=== PATIENT | male | born 1995 | race Native Hawaiian/Other Pacific Islander ===

== ENCOUNTER 2021-04-16 11:13 | Inpatient (IN) | payer BC, OTHER ==
[~2021-04-16] VITALS: Ht 195.6 cm; Wt 93.6 kg
--- NOTE | 2021-04-16 11:30 | NUR ---
LATE ENTRY PT ARRIVED TO FLOOR VIA WC. ASSESSMENT COMPLETED. PT STATES HE HAS NOT BEEN FEELING GOOD FOR THE PAST 11 DAYS. HE HAS SEEN 2 OTHER DOCTORS RELATED TO THIS ILLNESS WITH NO RESULTS. PT FAMILY REPORTS THAT HIS SATS DROP TO HIGH 70S LOW 80S WITH MINIMAL EXERTION. PT PALE AND RESP LABORED. NOTIFIED. NEW ORDERS GIVEN TO PT PT ON HIGH FLOW. ORDER CARRIED OUT. PT SATS INCREASE TO 94% ON HIGH FLOW WITH SETTINGS OF 45L AT 40%.
[2021-04-16 11:57] LABS: PLATELET COUNT 256 K/uL (142-355)
[2021-04-16 12:48] LABS: POTASSIUM 4.5 mmol/L (3.6-5.2)
[2021-04-16 18:12] VITALS: BP 119/73; TEMP 99.7
--- NOTE | 2021-04-16 18:20 | NUR ---
PT BEGAN TO HAVE BLEEDING FROM THE NOSE AND COUGHING UP BLOOD. PT SPIT SCANT AMOUNT OF SPUTUM WITH BRIGHT RED BLOOD MIXED IN INTO BASIN. SUPERVISOR BINDERY GAVE PT LUBRICANT JELLY TO PUT IN NOSE TO PREVENT FURTHER DRYING OF NASAL MUCOSA. BLOODY SPUTUM WAS DISCUSSED WITH .
[2021-04-16 20:00] VITALS: BP 116/71; TEMP 98.7
--- NOTE | 2021-04-16 22:29 | NUR ---
PM MEDS GIVEN AT THIS TIME. PT. TOLERATED WELL. PT. CURRENTLY ON 45L @ 40% ON HIGH FLOW OXYGEN DEVICE SATTING BETWEEN 92-95% AT THIS TIME. PT. IN A HIGH FOWLERS POSITION WITH SIDE RAILS UP TIMES TWO WITH BED IN LOWEST POSITION WITH CALL LIGHT WITHIN REACH. CINDER DUMP CRANE OPERATOR EDUCATED ON CONSISTENT USE OF INCENTIVE SPIROMETER AND ACAPELLA DEVICES. PT. UTILIZIED BOTH DEVICES AND GOT UP TO 2000 ON THE INCENTIVE SPIROMETER. NO S/S OF ACUTE DISTRESS NOTED AT THIS TIME ON CURRENT OXYGEN SETTINGS. WILL CONTINUE TO MONITOR FOR ANY ACUTE CHANGES.
[2021-04-17] VITALS (7 sets, daily range): BP systolic 103–121; BP diastolic 59–71; TEMP 97–99.1; Ht 195.6 cm; Wt 93.6 kg
--- NOTE | 2021-04-17 05:15 | NUR ---
RAD AT BEDSIDE AT THIS TIME TO RETRIEVE PT. FOR CXR. PT. PUT ON 6LPM FOR WHEELCHAIR TRANSFER TO RADIOLOGY 0520- PT BACK TO ROOM AT THIS TIME. NO S/S OF ACUTE DISTRESS AT THIS TIME.
[2021-04-17 06:07] LABS: PLATELET COUNT 269 K/uL (142-355)
[2021-04-17 07:01] LABS: POTASSIUM 4.1 mmol/L (3.6-5.2)
--- NOTE | 2021-04-17 10:45 | NUR ---
INCREASE HFNC 50LPM/100% SATS STAYED AT 91-92% AND DONE MANUAL CPT ON PATIENT. PATIENT IS NOW PRONING FOR 1 HOUR.
--- NOTE | 2021-04-17 11:00 | NUR ---
PT WAS PRONED BY RT AND BEGAN TO INCREASE IN O2 SAT TO 99%. PRONING WAS TOLERATED VERY WELL. PT HAS RECIEVED CHEST PT AND SMART VEST.
--- NOTE | 2021-04-17 13:10 | NUR ---
DROPPED 02 TO 90% PATIENT SATING 91-93%. PATIENT EATING AFTER MEAL. WE WELL PRONE AGAIN FOR AN HOUR AND CPT WAS DONE ALSO.
--- NOTE | 2021-04-17 14:41 | NUR ---
PATIENT IS PRONING FOR AN HOUR AT THIS TIME. 02 AT 80%. SATING 98 % AND ANA CPT DONE ALSO.
--- NOTE | 2021-04-17 17:45 | NUR ---
POWER TO THE HOSPITAL WENT OUT. PT HAD TO BE MOVED TO NASAL CANNULA BRIEFLY WHILE HIGH FLOW MACHINE WAS BEING TRANSPORTED TO THE NEW ROOM. PT'S O2 SAT DROPPED TO THE 80'S RANGE WHILE BEING TRANSPORTED. PT WAS SUCCESSFULLY PLACED IN HIS NEW ROOM AND HIGH FLOW RE-APPLIED. PT STATED THAT THE LOSS OF HIGH FLOW O2 WAS "CONCERNING" FOR HIM, PT LOOKED SLIGHTLY FEARFUL. PT IS NOW LAYING IN BED WATCHING TV AND NO SIGNS OF DISTRESS ARE NOTED.
[2021-04-18] VITALS: BP 120/72; TEMP 97.8
[2021-04-18 04:00] VITALS: BP 114/73; TEMP 97.8
[2021-04-18 08:00] VITALS: BP 125/76; TEMP 98.2
--- NOTE | 2021-04-18 10:22 | NUR ---
changed water bag on high flow and adjusted flow to 40 o2 95% pt tolerating well and spo2 maintained at 95%. pt stated the flow was better tolerated.
[2021-04-18 11:59] LABS: PLATELET COUNT 351 K/uL (142-355)
[2021-04-18 12:00] VITALS: BP 123/79; TEMP 97.7
[2021-04-18 12:33] LABS: POTASSIUM 4.1 mmol/L (3.6-5.2)
--- NOTE | 2021-04-18 13:19 | NUR ---
1240 PT'S FLOW WAS AT 40 AND O2 WAS REDUCED TO 60%. SPO2 MAINTAINED AT 93% HR 65. PT LAYING IN BED WITH NO WORK OF BREATHING AT THIS TIME.
[2021-04-18 16:00] VITALS: BP 121/71; TEMP 98.4
--- NOTE | 2021-04-18 16:30 | NUR ---
PT WORKING WITH IS PULLING 2500CC GOOD EFFORT COUGH WAS STIMULATED WITH MOD AMT OF CLEAR SECRETIONS I ATTEMPTED TO ASSIST WITH THE COUGH WITH SOME CPT ON HIS BACK. TX TOLERATED WELL
--- NOTE | 2021-04-18 19:45 | NUR ---
IN ROOM TO CHECK ON PT. PT LAYING IN HIGH FOWLERS AT THIS TIME. PT STATES, "I AM FEELING A LOT BETTER." PT ALSO STATES THAT HE CAN GET 2500 ON THE INCENTIVE SPIROMETER. IV SITES FLUSHED. NO REDNESS, EDEMA, OR LEAKING. PT DENIES ANY COMPLAINTS WITH IV SITE. IV SITES LEFT SALINE LOCKED PER DR. VALDOVINOS'S ORDERS. NO SIGNS OR SYMPTOMS OF DISTRESS AT THIS TIME. WILL CONTINUE TO MONITOR. BED LOCKED AND LOW WITH CALL [place]ITFIELD IN REACH.
[2021-04-18 20:00] VITALS: BP 122/74; TEMP 98.7
[2021-04-19 00:21] VITALS: BP 129/71; TEMP 98.3
--- NOTE | 2021-04-19 01:00 | NUR ---
PT LAYING IN LOW JACKSON'S AT THIS TIME WITH EYES CLOSED, RESTING QUIETLY. PT STILL HOOKED UP TO TELEMETRY WITH CONTINUOUS O2 MONITORING. VITAL SIGNS ARE STABLE AT THIS TIME. NAD NOTED. WILL CONTINUE TO MONITOR.
[2021-04-19 04:00] VITALS: BP 113/68; TEMP 97.6
--- NOTE | 2021-04-19 06:49 | NUR ---
PT RESTING IN LF WITH HIS EYES CLOSED AT THIS TIME. NAD NOTED. DR. VALDOVINOS NOTIFIED THAT PT STARTED HAVING ARRHYTHMIAS ON TELE A FEW HOURS AGO. EKG DONE AT THAT TIME (0400) AND READ NORMAL SINUS RHYTHM WITH BRADYCARDIA. PT'S VITAL SIGNS WERE STABLE AND PT DENIED FEELING "LIKE ANYTHING WAS WRONG". DR. VALDOVINOS MADE AWARE OF ALL OF THIS AND SAP PROJECT MANAGER RECEIVED NEW ORDERS FOR PATIENT. ORDERS PUT IN THE CHART.
[2021-04-19 07:03] LABS: PLATELET COUNT 358 K/uL (142-355)
[2021-04-19 07:25] LABS: POTASSIUM 4.6 mmol/L (3.6-5.2); SODIUM 143 mmol/L (136-145)
--- NOTE | 2021-04-19 08:08 | NUR ---
04/19/21 0730 WENT TO CHECK ON PATEINT HEART RATE ELEVATED TO 1128 PT OUT OF BED AMBULATING IN ROOM.PT HAD NONREBREATHER ON BUT AT ONLY 3LPM O2 SAT 89-92..SPOKE WITH RESPIRATORY SHE SAID TO INCREASE NONREBREATHER TO [address] BACK ON HIGH FLOW.ALSO LET HER KNOW HAS ORDERED A ABG FOR THIS AM.HEART RATE WITH PT AT REST BACK IN BED AT 53 OXYGEN SATURATION 94-95 PERCENT.CC
[2021-04-19 08:19] VITALS: BP 113/64; TEMP 98.1
--- NOTE | 2021-04-19 09:39 | NUR ---
04/19/[address] VALDOVINOS HERE [facility] ALSO NOTIFIED OF POS BS POS STAFF HEMO. 04/19/[address] VALDOVINOS OF ABG RESULTS. 04/19/21 0912 RESP PRESENT IN ROOM SMARTVEST IN PROGRESS.HIGH FLOW ADJUSTED DOWN TO 40LPM/50 PERCENT OXYGEN.PT MAY USE 02 AT 4LPM WHILE AMBULATING.RESP PRESENT IN ROOM TO PERFORM ECHO.CALL LIGHT WITHIN REACH.CC
--- NOTE | 2021-04-19 09:56 | NUR ---
04/19/21 0950 OXYGEN SATURATION DOWN TO 83 PERCENT PT NOT WEARING OXYGEN ASSISTED TO PUT HF BACK ON OXYGEN SATURATION UP TO 91 PERCENT.CC
--- NOTE | 2021-04-19 10:12 | NUR ---
04/19/21 OXYGEN SATURATION 93 PERCENT ON HIGH FLOW.40LPM/50 PERCENT.
[2021-04-19 12:00] VITALS: BP 116/69; TEMP 98.2
[2021-04-19 16:00] VITALS: BP 129/76; TEMP 98.2
[2021-04-19 20:00] VITALS: BP 128/72; TEMP 97.4
--- NOTE | 2021-04-19 20:00 | NUR ---
Patient was assisted with shampooing his hair, and washing his upper body by basin, and clothes. Respiratory also came into the room, to do cpt, and smart vest on patient. Patient was also instructed to use the incentive spirometer every hour, while awake. No acute distress noted. Call light is within reach. Patient is on tele, and continous pulse ox and being monitored at nurses station. Call light is within reach.
[2021-04-20] VITALS: BP 116/68; TEMP 97.9
--- NOTE | 2021-04-20 01:03 | NUR ---
Patient is on telementry and is being monitored at nurses station. Heartrate is ranging between 35-32, while pt is resting with eyes closed, but goes up to 50-60, when staff goes in and wakes him up and talks to him. Pt denies feeling dizzy, weak, or any discomfort. He is very appreciative to staff for being concerned about him. Dr Hensley called and informed about patient being extreme bradycardia, and she instructed this nurse to kept monitoring patient as long as his was asymptomic, but also ordered atropine, iv to have on hand at bedside, in case patient's heartrate went lower, or patient became symptomic and passed out. Patient is being monitored closely by staff, and call light is within reach, and patient is instructed to use call light if he notices any discomfort.
[2021-04-20 04:00] VITALS: BP 121/69; TEMP 97.9
[2021-04-20 05:11] LABS: POTASSIUM 4.5 mmol/L (3.6-5.2)
[2021-04-20 05:38] LABS: PLATELET COUNT 327 K/uL (142-355)
[2021-04-20 08:00] VITALS: BP 124/69; TEMP 97.6
--- NOTE | 2021-04-20 08:30 | NUR ---
PATIENT IN HIGH FOWLERS POSITION. EDUCATED PATIENT ON IMPORTANCE OF USING IS EVERY HOUR AND PATIENT V/O UNDERSTANDING. PATIENT DEMONSTRATED USE AND ABLE TO PULL 3000 AT THIS TIME.
--- NOTE | 2021-04-20 10:50 | NUR ---
PATIENT AMBULATED AROUND ROOM WITH USE OF NC 4LPM WITHOUT DIFFICULTY. PATIENT REPOSITIONED TO RECLINER AND V/O HIS APPRECIATION FOR SAME. HIGH FLOW PLACED BACK ON PATIENT, CALL LIGHT WITHIN REACH AND PATIENT INSTRUCTED TO CALL FOR ANY ASSISTANCE OR NEEDS, PT V/O UNDERSTANDING. NO S/SX OF RESPIRATORY DISTRESS NOTED AT THIS TIME. PATIENT EXPRESSED HIS APPRECIATION FOR THE CARE HE HAS RECEIVED WHILE AT [facility] [place].
[2021-04-20 12:00] VITALS: BP 120/73; TEMP 98
[2021-04-20 16:00] VITALS: BP 114/63; TEMP 98
--- NOTE | 2021-04-20 17:30 | NUR ---
PATIENT REMAINS IN THE RECLINER AND RECEIVING OXYGEN VIA HIGH FLOW WITH NO CHANGES TO HIGH FLOW SETTINGS.
[2021-04-20 20:00] VITALS: BP 107/67; TEMP 92.1
--- NOTE | 2021-04-20 20:00 | NUR ---
PT SITTING IN RECLINER. WATCHING TV. USING HIGH FLOW OXYGEN ORDERED. MONITORING O2 SATS AND VITAL SIGNS.
[2021-04-21] VITALS: BP 130/83; TEMP 97.6
[2021-04-21 04:00] VITALS: BP 131/66; TEMP 98
--- NOTE | 2021-04-21 04:05 | NUR ---
PT HAS RESTED THIS SHIFT. HR CONTINUES TO BE IN THE 30'S. 38-47 BPM. WHEN PATIENT IS STIMULATED HR IS IN THE 70'S AND 80'S. PT HAS BEEN USING HIGH FLOW NASAL CANNULA AT 40 LITERS AT 50 PERCENT. O2 SATS 97 PERCENT. TELE WITH SR. INCENTIVE SPIROMETER AT BEDSIDE. PT PULLS AT 3000. SMART VEST THERAPY WAS PERFORMED AND PT TOLERATED WELL. NO INCREASE IN HR OR VY. BEDSIDE TABLE IN EASY REACH. INSTRUCTED PT TO CALL FOR ASSISTANCE.
[2021-04-21 08:00] VITALS: BP 113/69; TEMP 97.9
[2021-04-21 08:59] LABS: PLATELET COUNT 465 K/uL (142-355)
[2021-04-21 09:13] LABS: POTASSIUM 4.2 mmol/L (3.6-5.2)
--- NOTE | 2021-04-21 09:30 | NUR ---
PATIENT SITTING UP IN CHAIR WITHOUT ANY COMPLAINTS OR DISTRESS NOTES. PATIENT STATES HE IS FEELING A LOT BETTER AT THIS TIME. DR. VALDOVINOS HERE TO SEE PATIENT AT THIS TIME. ORDERS GIVEN TO TAKE PATIENT OFF HIGH FLOW AND MONITOR O2 SATS.. PATIENT DENIES ANY SHORTNESS OF BREATH AND SAT UP IN RECLINER AT BEDSIDE WATCHING TV FOR APPROXIMATELY 45 MINUTES AND OXYGEN SATURATION STAYED FROM 93%-98% WITHOUT DROPPING. PATIENT DENIES ANY SOB AT THIS TIME AND NO DISTRESS OR LABORED BREATHING NOTED. PATIENT ASSISTED TO SHOWER AND WAS ABLE TO TAKE SHOWER AND CLOTHE HIMSELF AND AMBULATE BACK TO RECLINER WITHOUT ANY OXYGEN SATURATION READINGS LESS THAN 93%. DR. VALDOVINOS AWARE AND STATES DC TELEMETRY AND CONTINOUS PULSE OX AT THIS TIME AND MONITOR WITH SPOT CHECK O2 SAT. NO DISTRESS NOTED AND PATIENT RESTING QUIETLY AND COMFORTABLE. CALL LIGHT WITHIN REACH. WILL CONTINUE TO MONITOR.
[2021-04-21 12:00] VITALS: BP 122/73; TEMP 98
[2021-04-21 16:00] VITALS: BP 118/72; TEMP 98.3
--- NOTE | 2021-04-21 18:46 | NUR ---
PATIENT REMAINS ON ROOM AIR AT THIS TIME AND HAS BEEN OFF ANY OXYGEN AT ALL SINCE AROUND 1000 AM NO DISTRES NOTED AT ANY TIME AND PATIENT STATES "I FEEL LIKE A NEW MAN!" PATIENT ADVISED TO STILL BE CAUTIOUS WHEN AMBULATING IN THE ROOM AND TO TAKE BREAKS AND CALL STAFF FOR ANY DISTRESS OR SHORTNESS OF BREATH. CALL LIGHT WITHIN REACH WILL CONTINUE TO MONITOR.
[2021-04-21 20:00] VITALS: BP 123/66; TEMP 97.7
--- NOTE | 2021-04-21 21:00 | NUR ---
REMDESAVIR 100MG WAS HUNG FOR INFUSION. PM MEDICATIONS WERE GIVEN. VITAL SIGNS STABLE.
--- NOTE | 2021-04-21 22:00 | NUR ---
O2 SATS ARE 95 TO 97 PERCENT ON ROOM AIR. NAD.
[2021-04-22] VITALS: BP 109/53; TEMP 97.9
[2021-04-22 04:00] VITALS: BP 123/56; TEMP 97.8
[2021-04-22 08:00] VITALS: BP 111/59; TEMP 97.9
--- NOTE | 2021-04-22 09:20 | NUR ---
IN TO GIVE MORNING MEDS. NAD NOTED. PT HAS NO COMPLAINTS OR REQUESTS AT THIS TIME. PHYSICAL THERAPY STATED THAT PT'S O2 STAYED AT 92% ON ROOM AIR AFTER AMBULATING. BED LOW AND LOCKED. SIDE RAILS UP X2. CALL LIGHT WITHIN REACH.
[2021-04-22 12:00] VITALS: BP 99/53; TEMP 97.9
--- NOTE | 2021-04-22 16:30 | NUR ---
BOTH IV DC TIPS INTACT. PT TOLERATED WELL. EDUCATED PT ON DISCHARGE INSTRUCTIONS. PT VERBALIZED UNDERSTANDING. PT WALKED OUT OF BUILDING TO POV ACCOMPANIED BY STAFF.
== END 2021-04-22 16:20 | disposition home or self-care (01) | DRG 177 ==
LOC: MED/SURG 11:13
PROVIDERS: ADMIT Family Medicine; ATTEND Family Medicine
DX: U07.1 COVID-19 (principal); J12.82 Pneumonia due to coronavirus disease 2019; J96.01 Acute respiratory failure with hypoxia; R00.0 Tachycardia, unspecified
CPT/HCPCS: 36415; 36600; 80053; 82550; 82728; 82805; 83735; 84100; 84484; 85007; 85027; 85379; 86140; 86900; 86901; 87040; 87077; 87185; 87186; 87205; 87635; 93005; 94667; 94668; 94760; J0456; J0696; J1100; J1650; J1885; J2405; P9017; U0003

== ENCOUNTER 2021-05-10 14:03 | Observation (INO) | payer BC ==
[2021-05-10] VITALS (13 sets, daily range): BP systolic 122–147; BP diastolic 70–88; TEMP 98.7
[~2021-05-10] VITALS: Ht 195.6 cm; Wt 93.2 kg
[2021-05-10 15:56] LABS: PLATELET COUNT 292 K/uL (142-355)
[2021-05-10 16:03] LABS: POTASSIUM 4.1 mmol/L (3.6-5.2)
[2021-05-11 04:00] VITALS: BP 120/69; TEMP 97.5
[2021-05-11] MEDS ORDERED: VITAMIN C500 M7 PO (04:11)
[2021-05-11] MEDS ORDERED: VITAMIN D35000 UNI6 PO (04:19)
[2021-05-11] MEDS ORDERED: ORAZINC220 MG (04:20)
[2021-05-11] MEDS ORDERED: ASPI325T40 PO (04:21)
[2021-05-11] MEDS ORDERED: PROVENTIL (04:26)
[2021-05-11] MEDS ORDERED: TRELEGY ELLIPTA1 AER (04:27)
[2021-05-11 04:37] LABS: PLATELET COUNT 247 K/uL (142-355)
[2021-05-11 04:48] LABS: POTASSIUM 3.7 mmol/L (3.6-5.2)
[2021-05-11 05:30] VITALS: BP 140/83; TEMP 97.8; Ht 195.6 cm; Wt 93.2 kg
--- NOTE | 2021-05-11 06:44 | NUR ---
pt's meds are in the med room. pt's pulse ox out of medicine bag, placed in his bag.
[2021-05-11 08:00] VITALS: BP 111/57; TEMP 97.7
--- NOTE | 2021-05-11 08:00 | NUR ---
DR. VALDOVINOS ORDERS HYRDOCODONE 10/325 PO Q6 PRN FOR PAIN INSTEAD OF USING IV FLUIDS TO SEE IF IT CAN CONTROL HIS PAIN, SHE STATES TO USE IV MED IF HYDROCODONE DOES NOT HELP
[2021-05-11 12:00] VITALS: BP 116/74; TEMP 98.2
[2021-05-11 16:00] VITALS: BP 117/63; TEMP 97.4
[2021-05-11 20:00] VITALS: BP 118/78; TEMP 98.2
[2021-05-12] VITALS: BP 114/61; TEMP 98.4
[2021-05-12 04:00] VITALS: BP 118/63; TEMP 98.2
[2021-05-12 05:07] LABS: PLATELET COUNT 231 K/uL (142-355)
[2021-05-12 05:24] LABS: POTASSIUM 3.7 mmol/L (3.6-5.2)
--- NOTE | 2021-05-12 07:52 | NUR ---
PT DC INSTRUCTIONS GIVEN AND EXPLAINED, PT VERBALIZED UNDERSTANDING, PRESCRIPTIONS GIVEN FOR HYDROCODONE 10/325MG PO ONE TAB Q4H PRN, AUGMENTIN 850MG PO Q12 FOR 10 DAYS, AND INSTRUCTED PT TO FIELD ASSISTANT LEVAQUIN THAT IS ALREADY AT PHARMACY, PT TO CALL DR. THOMAS OFFICE AND MAKE APPOINTMENT THURSDAY, INSTRUCTED PT TO AVOID COUGHING IF POSSIBLE OR STRENOUS ACITVITY OR TRAUMA TO CHEST AND BACK, IV REMOVED WITH CATHETER INTACT, HOME MEDS RETURNED TO PT. PT DC VIA AMBULATION TO PRIVATE VEHICLE, NAD NOTED
== END 2021-05-12 07:50 | disposition home or self-care (01) ==
LOC: ED 14:03 → MED/SURG 20:55
PROVIDERS: Emergency Medicine Emergency Medical Services; ADMIT Family Medicine; ATTEND Family Medicine
DX: U07.1 COVID-19 (principal); J98.4 Other disorders of lung
CPT/HCPCS: 36415; 80053; 83735; 84100; 85027; 87635; 94760; 96374; 96375; 96376; 99220; 99284; G0378; J1885; J1956; J2270; J2543; Q9963; U0003